=== PATIENT | female | born 1985 | race Caucasian/White ===

== ENCOUNTER 2024-11-10 10:31 | Emergency (ER) | payer OTHER ==
[~2024-11-10] VITALS: Ht 165.1 cm; Wt 108.9 kg
[2024-11-10 10:41] VITALS: BP 146/86
[2024-11-10] MEDS ORDERED: ONDANSETRON 4 MG/2 ML VIAL ONE (10:54)
[2024-11-10] MEDS: ONDANSETRON 4 MG/2 ML VIAL IV ONE (11:13)
[2024-11-10] MEDS: IV NORMAL SALINE 1000 ML BAG IV ONE (11:13)
[2024-11-10 11:24] LABS: PLATELET COUNT (AUTO) 251 K/uL (179-408); RED BLOOD CELL COUNT(AUTO) 4.34 MIL/uL (3.63-4.92); RED CELL DISTRIBUTION WIDTH 13.4 % (12.3-17.7); WHITE BLOOD COUNT (AUTO) 9.4 K/uL (3.8-11.8)
[2024-11-10 11:43] LABS: ASPARTATE AMINOTRANSFERASE 14.0 U/L (15-37); CREATININE 0.9 mg/dL (0.6-1.3); SODIUM SERUM 139.0 mmol/L (136-145); TOTAL PROTEIN, SERUM 7.4 g/dL (6.4-8.2); UREA NITROGEN, BLOOD 6.0 mg/dL (7-18)
[2024-11-10 11:45] LABS: ETHANOL < 3 MG/DL (0-10)
[2024-11-10 11:51] LABS: *AMPHETAMINE, URINE NEGATIVE (NEGATIVE); *BARBITURATE, URINE NEGATIVE (NEGATIVE); *BENZODIAZEPINE, URINE NEGATIVE (NEGATIVE); *CANNABINOID, URINE NEGATIVE (NEGATIVE); *COCCAINE, URINE NEGATIVE (NEGATIVE); *OPIATE, URINE NEGATIVE (NEGATIVE); *PHENCYCLIDINE SCREEN,URINE NEGATIVE (NEGATIVE); FENTANYL, URINE NEGATIVE (NEGATIVE)
[2024-11-10 12:02] LABS: *BILIRUBIN,URIN NEGATIVE (NEGATIVE); *BLOOD, URINE NEGATIVE (NEGATIVE); *CLARITY,URINE CLEAR (CLEAR); *COLOR,URINE YELLOW (YELLOW); *KETONES,URINE NEGATIVE (NEGATIVE); *PROTEIN,URINE NEGATIVE (NEGATIVE); *UROBILINOGEN,URINE 0.2 E.U./dl (NORMAL); LEUKOCYTE ESTERASE ,URINE TRACE (NEGATIVE); NITRITE, URINE NEGATIVE (NEGATIVE); UGLUCOSE NEGATIVE (NEGATIVE)
[2024-11-10 12:13] LABS: SQUAMOUS EPITHELIAL CELL,UR MODERATE /HPF (NONE SEEN)
[2024-11-10] MEDS ORDERED: ONDA4TAB5 PO (12:23)
[2024-11-10] MEDS ORDERED: CIPR500T5 PO (12:23)
[2024-11-10] MEDS ORDERED: METR500T PO (12:23)
[2024-11-10 12:58] VITALS: BP 146/86; TEMP 98; O2SAT 97
== END 2024-11-10 12:59 | disposition home or self-care (01) ==
LOC: ER 10:31
DX: R11.2 Nausea with vomiting, unspecified (principal); R19.7 Diarrhea, unspecified; R10.9 Unspecified abdominal pain; K21.9 Gastro-esophageal reflux disease without esophagitis; F29 Unspecified psychosis not due to a substance or known physiological condition; Z88.6 Allergy status to analgesic agent; Z79.899 Other long term (current) drug therapy
CPT/HCPCS: 80076; 80048; 81001; 83690; 80178; 85025; 87086; 36415; 93005; 99284; 96361; 96374; 80320; 80307; J2405; J7040; 70030-TC; A4606; A4663; G0480